=== PATIENT | female | born 1945 | race Caucasian/White ===

== ENCOUNTER 2017-04-23 11:47 | Emergency (ER) | payer OTHER, MEDICARE ==
[2017-04-23] MEDS ORDERED: Ondansetron HCl/PF 4 MG/2 ML Vial ONE (12:16)
[2017-04-23] MEDS ORDERED: Morphine 4 MG/ML VIAL ONE (12:16)
[2017-04-23 12:41] LABS: #Basophils 0.1 thou/uL (0.0-0.2); #Eosinphils 0.3 thou/uL (0.0-0.7); #Lymphocytes 2.7 thou/uL (1.20-3.40); #Monocytes 0.7 thou/uL (0.11-0.59); #Neutrophils 6.6 thou/uL (1.40-6.50); %Eosinophils 2.5 % (0.0-10.0); %Lymphocytes 25.6 % (21.0-51.0); %Monocytes 7.1 % (0.0-10.0); %Neutrophils 63.7 % (42.0-75.0); Mean Corpuscular HGB CONC 34.1 g/dL (32.0-36.0); Mean Corpuscular Hemoglobin 33.5 pg (27.0-31.0); Mean Corpuscular Volume 98.4 fl (81.0-99.0); Mean Platelet Volume 11.2 fL (7.4-10.4); Platelet Count 230 thou/uL (130-400); RBC Distribution Width 12.4 % (11.5-14.5); Red Blood Cell (RBC) Count 4.19 mill/uL (4.20-5.40); White Blood Cell (WBC) Count 10.4 thou/uL (4.8-10.8)
[2017-04-23 12:49] LABS: Bilirubin Negative (Negative); Blood, Urine Negative (Negative); Clarity Clear (Clear); Glucose, Urine (Dipstick) Negative (Negative); Leukocyte Negative (Negative); Nitrite Negative (Negative); Protein, Urine (Dipstick) 30 mg/dL (Neg-Trace); Urobilinogen 0.2 mg/dL (0.2-1.0)
[2017-04-23 12:49] LABS: PTT 23.4 SEC (22.9-36.1); Prothrombin Time 13.5 SEC (12.0-14.7)
[2017-04-23 12:52] LABS: Specific Gravity, Urine 1.026 (1.002-1.036)
[2017-04-23 12:55] LABS: ALT (SGPT) 15 U/L (8-55); AST (SGOT) 18 U/L (5-34); Albumin 3.7 g/dL (3.4-4.8); Alkaline Phosphatase 69 U/L (40-150); Anion Gap 15 mmol/L (10-20); BUN (Urea Nitrogen) 11 mg/dL (9.8-20.1); Bilirubin, Total 0.4 mg/dL (0.2-1.2); Calc. Creatinine Clearance 0 mL/min (70-130); Calcium 8.7 mg/dL (7.8-10.44); Carbon Dioxide 21 mmol/L (23-31); Chloride 109 mmol/L (98-107); Estimated GFR-MDRD 54; Globulin 3.1 g/dL (2.4-3.5); Glucose 116 mg/dL (80-115); Potassium 4.1 mmol/L (3.5-5.1); Protein, Total 6.8 g/dL (6.0-8.3); Sodium 141 mmol/L (136-145)
[2017-04-23 12:57] LABS: Bacteria/HPF Rare-Few HPF (None Seen); Squamous Epithelial 0-3 HPF (0-3); WBC/HPF 0-3 HPF (0-3)
--- NOTE | 2017-04-23 13:01 | RAD ---
RADIOGRAPH PELVIS ONE VIEW: Date: 04-23-17 Time: 11:57 a.m. History: 71-year-old female status post acute traumatic injury to the pelvis. FINDINGS: There is transverse fracture of the subcapital portion of the left femoral neck, with significant for eshortening. Metallic contralateral right hip replacement prosthesis, with adjacent heterotopic ossif ication. Pelvic ring appears to be intact with no grossly displaced fracture. Degenerative disc disea se at L5-S1. IMPRESSION: 1. Acute, traumatic, closed, displaced, left subcapital femoral neck fracture with impaction and fore shortening. 2. 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 3. 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 POS: [facility]
--- NOTE | 2017-04-23 13:17 | RAD ---
RADIOGRAPH LEFT HIP TWO VIEWS: Date: 04-23-17 Time: 12:01 p.m. History: 71-year-old female status post acute trauma to the left hip. FINDINGS: Transversely oriented fracture of the subcapital portion of the femoral neck with foreshortening. No dislocation. IMPRESSION: Acute, traumatic, impacted and foreshortened, displaced left subcapital femoral neck fracture. POS: [facility]
== END 2017-04-23 12:48 | disposition short-term general hospital (02) ==
LOC: MADERS 11:47
DX: S72.002B Fracture of unspecified part of neck of left femur, initial encounter for open fracture type I or II (principal); I25.2 Old myocardial infarction; I10 Essential (primary) hypertension; F32.9 Major depressive disorder, single episode, unspecified; K21.9 Gastro-esophageal reflux disease without esophagitis; W10.9XXA Fall (on) (from) unspecified stairs and steps, initial encounter
CPT/HCPCS: 51702; 72170; 80053; 81003; 81015; 85025; 85610; 85730; 96374; 96375; J2270; J2405

== ENCOUNTER 2021-04-15 23:09 | Emergency (ER) | payer MEDICARE | END 2021-04-15 23:57 | disposition home or self-care (01) | LOC: MADERS 23:09 | DX: M25.512 Pain in left shoulder (principal); R07.81 Pleurodynia; W18.39XA Other fall on same level, initial encounter; I10 Essential (primary) hypertension; E78.5 Hyperlipidemia, unspecified; E78.00 Pure hypercholesterolemia, unspecified; I25.2 Old myocardial infarction; K21.9 Gastro-esophageal reflux disease without esophagitis; Z79.899 Other long term (current) drug therapy ==

== ENCOUNTER 2023-10-25 11:34 | Emergency (ER) | payer MEDICARE | END 2023-10-25 13:15 | disposition home or self-care (01) | LOC: MADERS 11:34 | DX: S20.212A Contusion of left front wall of thorax, initial encounter (principal); I25.10 Atherosclerotic heart disease of native coronary artery without angina pectoris; I10 Essential (primary) hypertension; W01.0XXA Fall on same level from slipping, tripping and stumbling without subsequent striking against object, initial encounter ==

== ENCOUNTER 2024-03-21 11:27 | Emergency (ER) | payer MEDICARE ==
[2024-03-21] MEDS ORDERED: Lidocaine 4% Patch ONE (12:13)
[2024-03-21] MEDS ORDERED: Dexamethasone 10 MG/ML VIAL ONE (12:13)
== END 2024-03-21 13:44 | disposition home or self-care (01) ==
LOC: MADERS 11:27
DX: S32.040A Wedge compression fracture of fourth lumbar vertebra, initial encounter for closed fracture (principal); I10 Essential (primary) hypertension; E78.00 Pure hypercholesterolemia, unspecified; W19.XXXA Unspecified fall, initial encounter; Z79.899 Other long term (current) drug therapy
CPT/HCPCS: 72131; 72170; 73502; J1100; 96372